=== PATIENT | female | born 2000 | race Caucasian/White ===

== ENCOUNTER 2019-01-03 19:26 | Emergency (ER) | payer BC ==
[2019-01-03] MEDS ORDERED: PRENATAL 19 CH1 EACH PO (19:41)
[2019-01-03 20:26] LABS: EOS # 0.3 (0.04-0.40); EOS % 2.1 % (0.1-4.0); HEMATOCRIT 32.2 % (35.0-45.0); HEMOGLOBIN 10.8 g/dL (12.0-15.0); LYMPH# 2.7 (1.20-3.40); MEAN CELL VOLUME 92 fl (78-95); MEAN CORPUSCULAR HEMOGLOBIN 31 pg (26-32); MEAN CORPUSCULAR HGB CONC 34 g/dL (33-37); MEAN PLATELET VOLUME 10.9 fl (7.4-10.4); MONO # 0.8 (0.10-0.60); NEU # 8.2 (1.40-6.50); PLATELET COUNT 207 K/mm3 (130-400)
[2019-01-03] MEDS ORDERED: PREDNISONE20 M1 PO (20:45)
[2019-01-03] MEDS ORDERED: ZITHROMAX 250M250 MG PO (20:45)
[2019-01-03 20:59] VITALS: BP 100/55
== END 2019-01-03 21:00 | disposition home or self-care (01) ==
LOC: ED 19:26
PROVIDERS: Family Medicine
DX: O99.512 Diseases of the respiratory system complicating pregnancy, second trimester (principal); J45.909 Unspecified asthma, uncomplicated; F17.210 Nicotine dependence, cigarettes, uncomplicated
CPT/HCPCS: J7512

== ENCOUNTER 2019-07-09 16:58 | Emergency (ER) | payer BC ==
[~2019-07-09 16:58] MED LIST: PREDNISONE20 M1 PO; PRENATAL 19 CH1 EACH PO; ZITHROMAX 250M250 MG PO
[2019-07-09] MEDS ORDERED: NATURAL IRON65 MG PO (17:10)
[2019-07-09 18:08] VITALS: BP 132/86
== END 2019-07-09 18:02 | disposition home or self-care (01) ==
LOC: ED 16:58
DX: R11.2 Nausea with vomiting, unspecified (principal); F17.210 Nicotine dependence, cigarettes, uncomplicated

== ENCOUNTER 2020-04-03 12:20 | Emergency (ER) | payer BC ==
[~2020-04-03 12:20] MED LIST changes: +NATURAL IRON65 MG PO
[2020-04-03 13:14] VITALS: BP 112/47
== END 2020-04-03 13:18 | disposition home or self-care (01) ==
LOC: ED 12:20
DX: H01.002 Unspecified blepharitis right lower eyelid (principal); H10.9 Unspecified conjunctivitis